=== PATIENT | male | born 1945 | race Caucasian/White ===

== ENCOUNTER 2023-05-07 19:33 | Emergency (ER) | payer OTHER ==
[2023-05-07 20:13] LABS: HEMATOCRIT 37.9 % (35.4-49); HEMOGLOBIN 12.2 G/dL (11.7-16.9); MCHC 32.2 g/dl (32.0-35.9); MEAN CELL VOLUME 61.2 fl (80-96); MEAN PLT VOLUME 8.5 fl (7.5-11.1); PLATELET COUNT 209.5 10^3/uL (134-434); RBC 6.19 10^6/uL (4.00-5.60); WHITE BLOOD COUNT 9.2 10^3/uL (4.0-10.8)
[2023-05-07 20:16] VITALS: BMI 25.8
[2023-05-07 20:36] LABS: ALBUMIN 4.3 g/dl (3.4-5.0); BILIRUBIN,TOTAL 1.6 mg/dl (0.2-1); CALCIUM 9.3 mg/dl (8.5-10.1); CREATININE 1.2 mg/dl (0.6-1.3); POTASSIUM 3.8 mmol/L (3.5-5.1)
[2023-05-07 20:46] LABS: MCH 19.7 pg (25.7-33.7)
[2023-05-07 20:54] LABS: ANISOCYTOSIS 2+; MACROCYTOSIS 1+; OVALOCYTE 2+
[2023-05-07 20:55] LABS: TARGET CELLS 1+
[2023-05-07 20:56] LABS: PLATELET ESTIMATE ADEQUATE
[2023-05-07 21:22] VITALS: BP 166/70
[2023-05-07] MEDS ORDERED: ACETAMINOPHEN 1000 MG/100 ML BAG IVPB ONE (21:30)
[2023-05-07] MEDS ORDERED: ACETAMINOPHEN INJECTION 100 ML IVPB ONE (21:35)
[2023-05-07 21:52] VITALS: PULSE 97; RESP 20
[2023-05-07 23:04] VITALS: TEMP 99.6
== END 2023-05-07 23:04 | disposition home or self-care (01) ==
LOC: FER 19:33
PROC: 3E033NZ Introduction of Analgesics, Hypnotics, Sedatives into Peripheral Vein, Percutaneous Approach (ICD-10-PCS; principal; 2023-05-07)
DX: R07.89 Other chest pain (principal)
CPT/HCPCS: 36415; 71045-TC-FY; 80053; 84484; 85027; 93005; 96374; 99285-25; J0131